=== PATIENT | female | born 1990 | race Two or more races ===

== ENCOUNTER 2017-03-24 00:33 | Emergency (ER) | payer OTHER ==
--- NOTE | ~2017-03-24 | CT4 ---
[facility] A Service of [facility] & [facility] RADIOLOGY TEXT RESULTS PATIENT: ALFREDO DE LA ROSA LOCATION: [facility] : 88 UNIT #: [id number] AGE: [address]: Shannon Rebolledo APRN SEX: F ORDER DR: [id number] [facility] [address] [place], [place] [address] [id number] MR#: [id number] #: [id number] NAME: ALFREDO DE LA ROSA : 1990 SEX: F STUDY DATE/TIME: 03/24/2017 03:02 UNIT: [facility] ROOM: STUDY DESCRIPTION: CT Abd and Pelv Wo Cont Attending Physician: Shannon Rebolledo A.P.R.N. Ordering Physician: Shannon Rebolledo A.P.R.N. Primary Care Physician: No Primary Care Physician MEDICAL IMAGING REPORT This report is preliminary unless electronic signature is present EXAM Abdomen and pelvis CT 03/24/2017 at 03:02. INDICATIONS Left side abdominal pain and nausea that started today. Pain rates 9 out of 10. TECHNIQUE Axial noncontrast images were obtained through the abdomen and pelvis. Multiplanar reformats were obtained. This CT exam was performed with one or more of the following radiation dose reduction techniques: automatic exposure control, adjustment of mA and/or kV according to patient size, and iterative reconstruction. COMPARISON No comparison. FINDINGS Abdomen: Lung bases are clear. Gallbladder is normal. No renal or ureteral stones are seen. There is no hydronephrosis. There is bilateral lobulation in the kidneys. The unenhanced solid organs are otherwise normal. Unopacified GI tract is normal. No free fluid. Pelvis: Urinary bladder is normal. Calcification in the left hemipelvis is felt to represent a phlebolith. No lower ureteral stones are seen. The unopacified GI tract, including the appendix, is normal. There is a mass in the left anterior pelvis which appears to be arising from the uterus. It measures about 4.5 cm. This is probably a fibroid. This could be better assessed with ultrasound. IMPRESSION 1. No renal or ureteral stones. No hydronephrosis. STS. [facility] A Service of [facility] & [facility] RADIOLOGY TEXT RESULTS PATIENT: ALFREDO DE LA ROSA LOCATION: [facility] : 88 UNIT #: [id number] AGE: [address]: Shannon Rebolledo APRN SEX: F ORDER DR: 2. Normal unopacified GI tract, including the appendix. 3. 4.5 cm lesion in the left hemipelvis appears to be exophytic from the uterus. There is probably a large fibroid. This could be better assessed with pelvic ultrasound, potentially non emergently. Dictated by... Brodie Buckner Jr., M.D. THIS IS AN ELECTRONICALLY VERIFIED REPORT Brodie Buckner Jr., M.D. at 03/24/2017 8:15 PM LEÓN/mirlande TD: 03/24/2017 11:57 JOB #: [id number] MEDICAL IMAGING REPORT Page 1 of 1 COPY
[2017-03-24 01:34] LABS: URINE SOURCE CLEAN CATCH
[2017-03-24 01:39] LABS: BASOPHIL% 0.4 % (0-2.5); EOSINOPHIL# 0.1 X10e3 (0-0.7); EOSINOPHIL% 0.7 % (0.0-7.0); HEMATOCRIT 38.5 % (35.0-45.0); HEMOGLOBIN 12.7 gm/dL (12.0-16.0); LYMPHOCYTE# 1.7 X10e3 (1.0-3.5); LYMPHOCYTE% 16.6 % (17.0-45.0); MEAN CORPUSCULAR HEMOGLOBIN 28.4 PG (28-34); MEAN CORPUSCULAR HGB CONC 33.1 g/dL (30-36); MEAN PLATELET VOLUME 8.7 FL (6.5-11.5); MONOCYTE# 0.6 X10e3 (0-1.0); MONOCYTE% 5.6 % (3.0-12.0); NEUTROPHIL% 76.7 % (40-75); PLATELET COUNT 293 X10e3 (140-420); RED BLOOD COUNT 4.48 X10e (3.90-5.30); RED CELL DISTRIBUTION WIDTH 12.3 % (11.0-15.5); WHITE BLOOD COUNT 10.4 X10e3 (4.0-10.5)
[2017-03-24 01:42] LABS: DIFF IND NO
[2017-03-24 01:43] LABS: URINE APPEARANCE CLEAR; URINE BILIRUBIN NEG (NEG); URINE BLOOD TRACE (NEG); URINE COLOR YELLOW; URINE GLUCOSE 100 MG/DL (NEG); URINE KETONE TRACE (NEG); URINE LEUKOCYTE ESTERASE 1+ (NEG); URINE NITRATE NEG (NEG); URINE PH 6.5 (5-8); URINE PROTEIN NEG (NEG); URINE SPECIFIC GRAVITY 1.033 (1.003-1.035); URINE UROBILINOGEN 0.2 MG/DL (NEG)
[2017-03-24 01:47] LABS: CULTURE INDICATED? YES; URINE BACTERIA AUWI 1+ (NEGATIVE); URINE SQUAMOUS EPITHELIAL CELL OCC /[HPF]
[2017-03-24 01:57] LABS: ALBUMIN SERUM 4.2 g/dL (3.5-5.0); ALKALINE PHOSPHATASE 57 U/L (32-92); ALT (SGPT) 10 U/L (10-40); AST (SGOT) 16 U/L (10-42); BILIRUBIN,TOTAL 0.8 mg/dL (0.2-2.0); BLOOD UREA NITROGEN 13 mg/dL (9-23); BUN/CREATININE RATIO 21.66; CALCIUM SERUM 8.3 mg/dL (8.4-10.2); CARBON DIOXIDE 24 mmol/L (22-31); CHLORIDE 101 mmol/L (100-111); CREATININE SERUM 0.6 mg/dL (0.6-1.4); GLUCOSE FASTING 96 mg/dL (70-110); LIPASE 22 U/L (22-51); POTASSIUM 3.3 mmol/L (3.5-5.1); SODIUM 131 mmol/L (135-145)
[2017-03-24 01:59] LABS: BILIRUBIN, DIRECT <0.1 mg/dL (0.0-0.2); BILIRUBIN,INDIRECT 0.7 mg/dL (0.0-0.9)
== END 2017-03-24 03:59 | disposition home or self-care (01) ==
LOC: CED 00:33
PROVIDERS: Emergency Medicine
DX: N39.0 Urinary tract infection, site not specified (principal)
CPT/HCPCS: 36415; 74176; 80048; 80076; 81003; 83690; 84703; 85025; 87086; 96361; 96374; 96375; 99284; J1885; J2405